=== PATIENT | male | born 1960 | race Caucasian/White ===

== ENCOUNTER 2024-11-16 12:39 | Inpatient (IN) | payer OTHER ==
[~2024-11-16] VITALS: Ht 177.8 cm; Wt 84.8 kg
[2024-11-16] MEDS: IV NS 0.9% 1,000 ML BAG IV ONE ×2 (13:00→13:30)
[2024-11-16] MEDS ORDERED: NOREPINEPHRINE 8MG/250ML RTU 250 ML IV ONE (13:15)
[2024-11-16] MEDS: PIPERACILLIN /TAZOBACTAM 3.375 G in IV D5W 50 ML IV ONE (13:30)
[2024-11-16] MEDS ORDERED: LIDOCAINE 0.5% HCL 50 ML VIAL ONE (13:40)
[2024-11-16 13:45] LABS: INR 1.03 (0.91-1.10); PARTIAL THROMBOPLASTIN TIME 29.1 SEC (24.3-34.3); PROTHROMBIN TIME 10.9 SECS (9.2-11.1)
[2024-11-16 13:47] LABS: ALANINE AMINOTRANSFERASE 94 U/L (12-78); ALBUMIN 1.8 g/dL (3.4-5.0); ALKALINE PHOSPHATASE 402 U/L (46-116); ASPARTATE AMINOTRANSFERASE 73 U/L (15-37); BASOPHILS % (AUTO) 0.3 % (0.0-2.0); BILIRUBIN,DIRECT 0.3 mg/dL (0.0-0.2); BILIRUBIN,TOTAL 0.9 mg/dL (0.2-1.0); CALCIUM, SERUM 8.1 mg/dL (8.5-10.1); CARBON DIOXIDE 20 mmol/L (21-32); CHLORIDE 93 mmol/L (98-107); CREATININE 1.8 mg/dL (0.6-1.3); EOSINOPHILS % (AUTO) 0.2 % (0.0-6.0); GLUCOSE 289 mg/dL (74-106); HEMATOCRIT 34 % (39-51); HEMOGLOBIN 11.8 g/dL (13.5-17.5); LYMPHOCYTES # (AUTO) 0.3 K/uL (0.8-4.8); LYMPHOCYTES % (AUTO) 2.5 % (20.0-44.0); MEAN CORPUSCULAR HEMOGLOBIN 33 PG (26.0-33.0); MEAN CORPUSCULAR HGB CONC 35 g/dl (31.0-36.0); MEAN CORPUSCULAR VOLUME 93 fL (80-96); MONOCYTES # (AUTO) 0.9 K/uL (0.1-1.30); MONOCYTES % (AUTO) 6.8 % (2.0-12.0); NEUTROPHILS # (AUTO) 12.1 K/uL (1.8-8.9); NEUTROPHILS % (AUTO) 90.2 % (43.0-81.0); PLATELET COUNT (AUTO) 511 K/uL (150-450); RED BLOOD CELL COUNT(AUTO) 3.61 MIL/uL (4.5-6.0); RED CELL DISTRIBUTION WIDTH 14.2 % (11.5-15.0); SODIUM SERUM 128 mmol/L (136-145); TOTAL PROTEIN, SERUM 5.6 g/dL (6.4-8.2); UREA NITROGEN, BLOOD 28 mg/dL (7-18); WHITE BLOOD COUNT (AUTO) 13.4 K/uL (4.3-11.0)
[2024-11-16 13:55] LABS: LACTIC ACID 3.7 mmol/L (0.4-2.0); POTASSIUM 2.8 mmol/L (3.5-5.1)
[2024-11-16] MEDS: NOREPINEPHRINE 8 MG in IV NS 0.9% 250 ML IV ONE (14:00)
[2024-11-16 14:54] LABS: APPEARANCE,URINE SLIGHTLY CLOUDY (CLEAR); BILIRUBIN,URINE NEGATIVE (NEGATIVE); BLOOD, URINE NEGATIVE Ery/uL (NEGATIVE); COLOR,URINE YELLOW (YELLOW); KETONES,URINE NEGATIVE (NEGATIVE); LEUKOCYTE ESTERASE ,URINE NEGATIVE (NEGATIVE); NITRITE, URINE NEGATIVE (NEGATIVE); PROTEIN,URINE TRACE mg/dl (NEGATIVE); UGLUCOSE TRACE mg/dL (NEGATIVE); UROBILINOGEN,URINE 0.2 EU/dL (0.2)
[2024-11-16] MEDS: VANCOMYCIN 1 GM in IV D5W 250 ML IV ONE (14:57)
[2024-11-16 15:07] LABS: ADD URINE CULTURE NO; BACTERIA,URINE None seen /HPF (None Seen); RBC,URINE 0-2 /HPF (0-2); WBC,URINE 0-2 /HPF (0-3)
[2024-11-16 15:08] LABS: HYALINE CASTS, URINE Few /LPF (None Seen); MUCUS,URINE Few /LPF (None Seen); URINE AMORPHOUS URATE Few /HPF (None Seen)
[2024-11-16] MEDS ORDERED: POTASSIUM CL. PREMIX PERIPHER. 100 ML ONE (15:16)
[2024-11-16] MEDS: POTASSIUM CL. PREMIX PERIPHER. 50 ML IV SCH (15:45)
[2024-11-16] MEDS ORDERED: ATOR20TA PO (16:18)
[2024-11-16] MEDS ORDERED: INSU100V7 SQ (16:18)
[2024-11-16] MEDS ORDERED: GABA-532 PO (16:18)
[2024-11-16] MEDS ORDERED: METF-881 PO (16:18)
[2024-11-16] MEDS ORDERED: ACET-73 PO (16:18)
[2024-11-16] MEDS ORDERED: LISI1TAB32 PO (16:18)
[2024-11-16] MEDS ORDERED: ACETAMINOPHEN 325 MG TABLET PO PRN (16:30)
[2024-11-16] MEDS ORDERED: MAGNESIUM HYDROXIDE 30 ML UDC PO PRN (16:30)
[2024-11-16] MEDS ORDERED: ONDANSETRON HCL/PF 4 MG/2 ML VIAL IVP PRN (16:30)
[2024-11-16] MEDS ORDERED: Z GUARD REMEDY 4 OZ OINT TP PRN (16:30)
[2024-11-16] MEDS ORDERED: HYDROCODONE/APAP 5/325MG TABLET PO PRN (16:30)
[2024-11-16] MEDS ORDERED: MAG HYDROX/AL HYDROX/SIMETH 30 ML UDC PO PRN (16:30)
[2024-11-16 17:02] LABS: ANISOCYTOSIS 1+; BAND % (MANUAL) 6 % (0.0-5.0); LYMPHOCYTES % (MANUAL) 3 % (16-48); MONOCYTES % (MANUAL) 4 % (0-11.0); NEUTROPHILS % (MANUAL) 87 (42-76)
[2024-11-16 17:03] LABS: PLATELET ESTIMATE INCRE
[2024-11-16] MEDS ORDERED: DEXTROSE 50%-WATER 50 ML DISP.SYRIN IV PRN (17:30)
[2024-11-16] MEDS ORDERED: NOREPINEPHRINE 32 MG in IV NS 0.9% 218 ML IV PRN ×2 (17:30→20:30)
[2024-11-16] MEDS: BLOOD SUGAR DIAGNOSTIC 1 EACH STRIP IN SCH (17:30)
[2024-11-16 20:34] VITALS: BP 133/69; TEMP 98.6; O2SAT 99
[2024-11-16] MEDS: ENOXAPARIN SODIUM 40 MG/0.4 ML DISP.SYRIN SQ SCH (20:45)
[2024-11-16] MEDS: IV NS 0.9% 1,000 ML IV PRN (20:46)
[2024-11-16] MEDS: MEROPENEM 1 G in IV NS 0.9% 100 ML IV SCH (20:46)
[2024-11-16 21:00] VITALS: BP 111/69; O2SAT 99
[2024-11-16] MEDS: MEROPENEM 500MG/NS 50 ML PB IV ONE (21:12)
[2024-11-16 21:30] VITALS: BP 105/59; O2SAT 99
[2024-11-16 22:00] VITALS: BP 105/58; O2SAT 99
[2024-11-16 22:30] VITALS: BP 106/62; O2SAT 91
[2024-11-16 23:00] VITALS: BP 113/63; O2SAT 94
[2024-11-16] MEDS: INSULIN REGULAR, HUMAN 100 UNIT/ML 3 ML VIAL SQ PRN (23:05)
[2024-11-17] VITALS (15 sets, daily range): BP systolic 90–136; BP diastolic 52–78; TEMP 98.2–98.7; O2SAT 97–100
[2024-11-17] MEDS: VANCOMYCIN 500 MG in IV D5W 100ml IV SCH (03:00)
[2024-11-17 04:46] LABS: EOSINOPHILS # (AUTO) 0.3 K/uL (0.0-0.7); HEMATOCRIT 34 % (39-51); HEMOGLOBIN 11.5 g/dL (13.5-17.5); LYMPHOCYTES # (AUTO) 4.1 K/uL (0.8-4.8); MEAN CORPUSCULAR HEMOGLOBIN 33 PG (26.0-33.0); MEAN CORPUSCULAR HGB CONC 34 g/dl (31.0-36.0); MEAN CORPUSCULAR VOLUME 96 fL (80-96); MONOCYTES # (AUTO) 0.1 K/uL (0.1-1.30); MONOCYTES % (AUTO) 1.2 % (2.0-12.0); NEUTROPHILS # (AUTO) 4.1 K/uL (1.8-8.9); NEUTROPHILS % (AUTO) 47.8 % (43.0-81.0); PLATELET COUNT (AUTO) 408 K/uL (150-450); RED BLOOD CELL COUNT(AUTO) 3.52 MIL/uL (4.5-6.0); WHITE BLOOD COUNT (AUTO) 8.6 K/uL (4.3-11.0)
[2024-11-17] MEDS ORDERED: MEROPENEM 1 G VIAL IV ONE (04:46)
[2024-11-17 06:08] LABS: CALCIUM, SERUM 7.6 mg/dL (8.5-10.1); CREATININE 1.1 mg/dL (0.6-1.3); MAGNESIUM 2.2 mg/dL (1.8-2.4); PHOSPHORUS 2.8 mg/dL (2.5-4.9)
[2024-11-17 06:14] LABS: POTASSIUM 2.5 mmol/L (3.5-5.1)
[2024-11-17] MEDS: POTASSIUM CHLORIDE 20 MEQ TAB.PRT.SR PO ONE (06:36)
[2024-11-17] MEDS: POTASSIUM CL. PREMIX PERIPHER. 50 ML IV SCH (06:37)
[2024-11-17] MEDS: PANTOPRAZOLE 40 MG VIAL IV SCH (08:20)
[2024-11-17] MEDS: PIPERACILLIN /TAZOBACTAM 3.375 G in IV D5W 100 ML IV SCH (14:23)
[2024-11-17] MEDS: VANCOMYCIN 1 GM in IV D5W 250ml IV SCH (15:34)
[2024-11-18 16:43] LABS: HIV-1 p24 ANTIGEN NON REACTIVE (NONREACTIVE); HIV-1/2 ANTIBODY NON REACTIVE (NONREACTIVE)
== END 2024-11-18 00:05 | disposition short-term general hospital (02) | DRG 871 ==
LOC: ER 12:39 → ICU 18:59 → TELE1 11-17 12:08
DX: A41.9 Sepsis, unspecified organism (principal); N17.0 Acute kidney failure with tubular necrosis; R65.21 Severe sepsis with septic shock; A09 Infectious gastroenteritis and colitis, unspecified; E44.0 Moderate protein-calorie malnutrition; E87.20 Acidosis, unspecified; E87.1 Hypo-osmolality and hyponatremia; Z90.49 Acquired absence of other specified parts of digestive tract; Z85.048 Personal history of other malignant neoplasm of rectum, rectosigmoid junction, and anus; Z92.21 Personal history of antineoplastic chemotherapy; Z92.3 Personal history of irradiation; Z93.3 Colostomy status; D64.9 Anemia, unspecified; E78.5 Hyperlipidemia, unspecified; R74.01 Elevation of levels of liver transaminase levels; E88.09 Other disorders of plasma-protein metabolism, not elsewhere classified; I10 Essential (primary) hypertension; E86.1 Hypovolemia; E86.0 Dehydration; R91.1 Solitary pulmonary nodule; Z79.4 Long term (current) use of insulin; Z79.84 Long term (current) use of oral hypoglycemic drugs; Z79.899 Other long term (current) drug therapy; E11.65 Type 2 diabetes mellitus with hyperglycemia; T50.2X5A Adverse effect of carbonic-anhydrase inhibitors, benzothiadiazides and other diuretics, initial encounter; Y92.9 Unspecified place or not applicable; E87.6 Hypokalemia
CPT/HCPCS: 36415; 71045-TC; 71250-TC; 80048-TC; 80076-TC; 81001; 82962-TC; 83605-TC; 83735-TC; 84100-TC; 84484-TC; 85025-TC; 85730-TC; 86850-TC; 87040-TC; 87081-TC; 87086-TC; 87806; 93307-TC; A4223; G0378; J1650; J1815; J2185; J2470; J2543; J3370; J3480; J3490; J7030; J7040; J7050; J7060